=== PATIENT | female | born 1955 | race Caucasian/White ===

== ENCOUNTER → 2025-05-23 | Outpatient (CLI) | payer BC ==
--- NOTE | 2025-05-28 12:41 | NM ---
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 Ri ght knee is more painful than left. 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 TECHNIQUE: After the intravenous administration of 24.4 mCi Tc 99m MDP. Images acquired 3 hours pos t injection. Multiple views of the knees are submitted. FINDINGS: Photopenic related to bilateral total knee arthroplasties. There is uniform increased activity at the margin of both femoral, tibial, and patellar components though slightly greater on the right. IMPRESSION: Increased activity along the margins of both total knee arthroplasties, right slightly mo re so than the left. These are nonspecific findings and may reflect postsurgical change or could be s een with loosening. Further clinical and radiographic correlation will be needed. [facility], , 05/28/2025 12:39 PM
== END | disposition home or self-care (01) ==
LOC: RADNMMAIN 10:05
PROVIDERS: ATTEND Orthopaedic Surgery
DX: T84.03 Mechanical loosening of internal prosthetic joint (principal); Z96.653 Presence of artificial knee joint, bilateral
CPT/HCPCS: 78300; A9503

== ENCOUNTER → 2025-06-18 | Outpatient (CLI) | payer BC ==
[2025-06-18 09:46] LABS: INR 0.9 (<1.2); Partial Thromboplastin Time 23.3 sec (22.0-30.0); Prothrombin Time 10.3 sec (10.0-12.5)
[2025-06-18 16:00] LABS: HCT 42.4 % (37.2-46.3); HGB 13.8 g/dL (12.0-15.0); MCH 30.4 pg (27.0-32.0); MCHC 32.5 g/dL (32.0-37.0); MCV 93.4 FL (80.0-97.0); NRBC Per 100 WBC 0 X 10*3/uL (0.00-0.01); Platelet Count 309 X 10*3/uL (140-440); RBC 4.54 X 10*6/uL (4.10-5.20); RDW 13.3 % (11.5-14.5); WBC 7.04 X 10*3/uL (4.50-10.00)
[2025-06-18 16:06] LABS: ALT 14 U/L (8-44); AST 23 U/L (13-35); Albumin 4.6 g/dL (3.8-4.9); Albumin/Globulin Ratio 2.30 Ratio (1.60-3.17); Alkaline Phosphatase 71 U/L (41-126); Anion Gap 12.50 mmol/L (4.00-12.00); BUN/Creat Ratio 21.14 Ratio (12.00-20.00); Blood Urea Nitrogen 14.8 mg/dL (9.0-27.0); Calcium 9.5 mg/dL (8.7-10.3); Carbon Dioxide 25.5 mmol/L (21.6-31.8); Chloride 104 mmol/L (96-109); Globulin 2.0 g/dL (1.6-3.3); Glucose 82 mg/dL (70-110); Potassium 4.1 mmol/L (3.5-5.5); Sodium 142 mmol/L (135-145); Total Protein 6.6 g/dL (6.2-8.2)
== END | disposition home or self-care (01) ==
LOC: LABPAT 08:44
PROVIDERS: ATTEND Orthopaedic Surgery
DX: Z01.818 Encounter for other preprocedural examination (principal); I50.1 Left ventricular failure, unspecified; R94.31 Abnormal electrocardiogram [ECG] [EKG]; Z22.322 Carrier or suspected carrier of Methicillin resistant Staphylococcus aureus; Z96.651 Presence of right artificial knee joint
CPT/HCPCS: 80053; 85027; 85610; 85730; 87070; 93005